=== PATIENT | male | born 1930 | race Two or more races ===

== ENCOUNTER 2017-08-06 07:14 | Outpatient (CLI) | payer OTHER | END 2017-08-06 07:23 | disposition home or self-care (01) | LOC: RAD 07:14 | DX: S22.39XG Fracture of one rib, unspecified side, subsequent encounter for fracture with delayed healing (principal) ==

== ENCOUNTER 2018-01-24 07:30 | Outpatient (CLI) | payer OTHER | END 2018-01-24 07:32 | disposition home or self-care (01) | LOC: RAD 07:30 | DX: J44.9 Chronic obstructive pulmonary disease, unspecified (principal) ==

== ENCOUNTER 2018-03-13 10:00 | Outpatient (CLI) | payer OTHER | END 2018-03-13 10:03 | disposition home or self-care (01) | LOC: RAD 10:00 | DX: I11.9 Hypertensive heart disease without heart failure (principal); J44.9 Chronic obstructive pulmonary disease, unspecified ==

== ENCOUNTER 2019-06-04 08:40 | Outpatient (CLI) | payer OTHER | END 2019-06-04 08:50 | disposition home or self-care (01) | LOC: SONOGRAMA 08:40 | DX: N43.2 Other hydrocele (principal) ==

== ENCOUNTER 2020-03-02 09:41 | Outpatient (CLI) | payer OTHER | END 2020-03-02 09:49 | disposition home or self-care (01) | LOC: RAD 09:41 | PROVIDERS: ATTEND Internal Medicine Cardiovascular Disease | DX: M47.894 Other spondylosis, thoracic region (principal); I11.9 Hypertensive heart disease without heart failure ==

== ENCOUNTER 2020-03-05 09:10 | Outpatient (CLI) | payer OTHER | END 2020-03-05 09:12 | disposition home or self-care (01) | LOC: NUCLEAR 09:10 | PROVIDERS: ATTEND Internal Medicine Cardiovascular Disease | DX: I50.20 Unspecified systolic (congestive) heart failure (principal); R06.09 Other forms of dyspnea; I34.0 Nonrheumatic mitral (valve) insufficiency ==

== ENCOUNTER 2020-03-14 17:07 | Emergency (ER) | payer OTHER ==
[~2020-03-14] VITALS: Ht 172.7 cm; Wt 84.4 kg
[2020-03-14] MEDS ORDERED: SIMVASTATIN5 MG (17:13)
[2020-03-14] MEDS ORDERED: LOSARTAN-HCTZ1 EAC2 (17:13)
[2020-03-14] MEDS ORDERED: GRALISE600 MG (17:14)
== END 2020-03-14 21:24 | disposition home or self-care (01) ==
LOC: ER 17:07
DX: M54.5 Low back pain (principal); R10.12 Left upper quadrant pain; Z03.818 Encounter for observation for suspected exposure to other biological agents ruled out

== ENCOUNTER 2020-03-24 07:30 | Outpatient (CLI) | payer OTHER ==
[~2020-03-24 07:30] MED LIST: GRALISE600 MG; LOSARTAN-HCTZ1 EAC2; SIMVASTATIN5 MG
== END 2020-03-24 07:38 | disposition home or self-care (01) ==
LOC: TOM 07:30
PROVIDERS: ATTEND Internal Medicine Gastroenterology
DX: Q61.02 Congenital multiple renal cysts (principal); K44.9 Diaphragmatic hernia without obstruction or gangrene; K57.90 Diverticulosis of intestine, part unspecified, without perforation or abscess without bleeding; K57.30 Diverticulosis of large intestine without perforation or abscess without bleeding; K59.09 Other constipation; R10.30 Lower abdominal pain, unspecified

== ENCOUNTER 2020-04-08 04:28 | Emergency (ER) | payer OTHER ==
[~2020-04-08] VITALS: Ht 170.2 cm; Wt 84.4 kg
== END 2020-04-08 20:23 | disposition home or self-care (01) ==
LOC: ER 04:28
DX: I86.1 Scrotal varices (principal); K59.09 Other constipation; M54.5 Low back pain

== ENCOUNTER 2020-04-20 08:19 | Emergency (ER) | payer OTHER ==
[~2020-04-20] VITALS: Ht 177.8 cm; Wt 84.4 kg
== END 2020-04-20 17:42 | disposition home or self-care (01) ==
LOC: ER 08:19
DX: N50.812 Left testicular pain (principal); N50.811 Right testicular pain; Z20.828 Contact with and (suspected) exposure to other viral communicable diseases

== ENCOUNTER 2020-06-06 00:18 | Emergency (ER) | payer OTHER ==
[~2020-06-06] VITALS: Ht 170.2 cm; Wt 84.4 kg
[2020-06-06] MEDS ORDERED: SIMVASTATIN5 MG PO (14:18)
[2020-06-06] MEDS ORDERED: LOSARTAN POTASS50 MG PO (14:18)
== END 2020-06-06 06:58 | disposition home or self-care (01) ==
LOC: ER 00:18
DX: R14.0 Abdominal distension (gaseous) (principal); R10.814 Left lower quadrant abdominal tenderness; Z03.818 Encounter for observation for suspected exposure to other biological agents ruled out

== ENCOUNTER 2020-06-06 13:27 | Emergency (ER) | payer OTHER ==
[~2020-06-06] VITALS: Ht 175.3 cm; Wt 83.0 kg
[2020-06-06] MEDS ORDERED: LOSARTAN POTASS50 MG PO (14:18)
[2020-06-06] MEDS ORDERED: SIMVASTATIN5 MG PO (14:18)
== END 2020-06-06 17:22 | disposition home or self-care (01) ==
LOC: ER 13:27
DX: K29.60 Other gastritis without bleeding (principal)

== ENCOUNTER 2020-06-21 08:53 | Emergency (ER) | payer OTHER ==
[~2020-06-21] VITALS: Ht 170.2 cm; Wt 84.4 kg
[~2020-06-21 08:53] MED LIST changes: +LOSARTAN POTASS50 MG PO; +SIMVASTATIN5 MG PO
[2020-06-21] MEDS ORDERED: COZAAR100 MG (09:01)
== END 2020-06-21 21:28 | disposition home or self-care (01) ==
LOC: ER 08:53
DX: R10.84 Generalized abdominal pain (principal); Z03.818 Encounter for observation for suspected exposure to other biological agents ruled out

== ENCOUNTER 2020-07-17 20:23 | Inpatient (IN) | payer OTHER ==
[~2020-07-17] VITALS: Ht 165.1 cm; Wt 77.1 kg
[~2020-07-17 20:23] MED LIST changes: +COZAAR100 MG; -SIMVASTATIN5 MG PO
[2020-07-19] MEDS ORDERED: FAMOTIDINE20 MG (16:23)
[2020-07-19] MEDS ORDERED: AMLODIPINE BESYL5 MG (16:23)
[2020-07-19] MEDS ORDERED: FUROSEMIDE40 MG (16:23)
[2020-07-19] MEDS ORDERED: ALLOPURINOL300 MG (16:23)
[2020-07-19] MEDS ORDERED: TAMSULOSIN HCL0.4 MG (16:24)
[2020-07-19] MEDS ORDERED: NEO-POLY-DEXAMET5 ML (16:24)
[2020-07-19] MEDS ORDERED: METOPROLOL SUCC50 MG (16:24)
[2020-07-19] MEDS ORDERED: SIMVASTATIN40 MG (16:24)
[2020-07-19] MEDS ORDERED: GABAPENTIN100 M2 (16:24)
[2020-07-19] MEDS ORDERED: DUTASTERIDE0.5 MG (16:24)
== END 2020-07-22 17:22 | disposition home or self-care (01) | DRG 728 ==
LOC: ER 20:23 → MEDI 07-18 15:50 → MEDJ 07-18 15:50 → MEDI 07-18 17:12 → MEDJ 07-18 19:21
PROVIDERS: ADMIT Internal Medicine; ATTEND Internal Medicine
PROC: BV44ZZZ Ultrasonography of Scrotum (ICD-10-PCS; principal; 2020-07-17)
DX: N45.3 Epididymo-orchitis (principal); N43.3 Hydrocele, unspecified; C61 Malignant neoplasm of prostate; Z20.822 Contact with and (suspected) exposure to COVID-19

== ENCOUNTER 2020-08-18 11:14 | Emergency (ER) | payer OTHER ==
[~2020-08-18] VITALS: Ht 167.6 cm; Wt 79.8 kg
[~2020-08-18 11:14] MED LIST changes: +ALLOPURINOL300 MG; +AMLODIPINE BESYL5 MG; +DUTASTERIDE0.5 MG; +FAMOTIDINE20 MG; +FUROSEMIDE40 MG; +GABAPENTIN100 M2; +METOPROLOL SUCC50 MG; +NEO-POLY-DEXAMET5 ML; +SIMVASTATIN40 MG; +TAMSULOSIN HCL0.4 MG
[2020-08-18] MEDS ORDERED: SURFAK240 MG PO (15:43)
== END 2020-08-18 16:40 | disposition home or self-care (01) ==
LOC: ER 11:14
DX: K59.09 Other constipation (principal); K62.89 Other specified diseases of anus and rectum

== ENCOUNTER 2020-09-06 23:45 | Emergency (ER) | payer OTHER ==
[~2020-09-06] VITALS: Ht 170.2 cm; Wt 72.6 kg
[~2020-09-06 23:45] MED LIST changes: +SURFAK240 MG PO
[2020-10-19] MEDS ORDERED: NORVASC2.5 M1 PO (11:01)
[2020-10-19] MEDS ORDERED: TOPROL XL25 M1 PO (11:01)
== END 2020-09-07 21:46 | disposition home or self-care (01) ==
LOC: ER 23:45
DX: K59.09 Other constipation (principal); R10.32 Left lower quadrant pain; R53.1 Weakness

== ENCOUNTER 2020-09-09 06:26 | Emergency (ER) | payer OTHER ==
[~2020-09-09] VITALS: Ht 170.2 cm; Wt 84.4 kg
[2020-09-09] MEDS ORDERED: LACTULOSE10 GM/151 PO (09:27)
[2020-10-19] MEDS ORDERED: TOPROL XL25 M1 PO (11:01)
[2020-10-19] MEDS ORDERED: NORVASC2.5 M1 PO (11:01)
== END 2020-09-09 10:47 | disposition home or self-care (01) ==
LOC: ER 06:26
DX: K59.09 Other constipation (principal)

== ENCOUNTER 2020-09-18 16:45 | Emergency (ER) | payer OTHER ==
[~2020-09-18] VITALS: Ht 170.2 cm; Wt 81.6 kg
[~2020-09-18 16:45] MED LIST changes: +LACTULOSE10 GM/151 PO
[2020-10-19] MEDS ORDERED: TOPROL XL25 M1 PO (11:01)
[2020-10-19] MEDS ORDERED: NORVASC2.5 M1 PO (11:01)
== END 2020-09-19 12:00 | disposition home or self-care (01) ==
LOC: ER 16:45
DX: K59.09 Other constipation (principal); N50.89 Other specified disorders of the male genital organs; E87.1 Hypo-osmolality and hyponatremia

== ENCOUNTER 2020-11-01 08:11 | Day surgery (SDC) | payer OTHER ==
[~2020-11-01 08:11] MED LIST changes: +NORVASC2.5 M1 PO; +TOPROL XL25 M1 PO
== END 2020-11-01 20:25 | disposition home or self-care (01) ==
LOC: CIR.AMB 08:11
PROVIDERS: ATTEND Urology
DX: N43.2 Other hydrocele (principal); Z20.822 Contact with and (suspected) exposure to COVID-19

== ENCOUNTER 2020-12-20 11:35 | Emergency (ER) | payer OTHER ==
[~2020-12-20] VITALS: Ht 170.2 cm; Wt 79.8 kg
== END 2020-12-20 20:17 | disposition home or self-care (01) ==
LOC: ER 11:35
DX: R10.13 Epigastric pain (principal); Z20.822 Contact with and (suspected) exposure to COVID-19

== ENCOUNTER 2021-01-07 12:48 | Emergency (ER) | payer OTHER ==
[~2021-01-07] VITALS: Ht 172.7 cm; Wt 80.7 kg
== END 2021-01-07 19:18 | disposition home or self-care (01) ==
LOC: ER 12:48
DX: R14.0 Abdominal distension (gaseous) (principal); R00.2 Palpitations

== ENCOUNTER 2021-02-15 08:26 | Outpatient (CLI) | payer OTHER | END 2021-02-15 08:32 | disposition home or self-care (01) | LOC: SONOGRAMA 08:26 → MAMO-SONO 02-22 07:15 | PROVIDERS: ATTEND Internal Medicine Cardiovascular Disease | DX: E04.1 Nontoxic single thyroid nodule (principal); E11.9 Type 2 diabetes mellitus without complications; I11.9 Hypertensive heart disease without heart failure; I70.0 Atherosclerosis of aorta ==

== ENCOUNTER 2021-02-28 08:00 | Outpatient (CLI) | payer OTHER | END 2021-02-28 08:30 | disposition home or self-care (01) | LOC: PPH VACUNA 08:00 | PROVIDERS: ATTEND Emergency Medicine Pediatric Emergency Medicine | DX: Z23 Encounter for immunization (principal) ==

== ENCOUNTER 2021-08-11 08:00 | Outpatient (CLI) | payer OTHER | END 2021-08-11 08:30 | disposition home or self-care (01) | LOC: PPH VACUNA 08:00 | PROVIDERS: ATTEND Emergency Medicine Pediatric Emergency Medicine | DX: Z23 Encounter for immunization (principal) ==

== ENCOUNTER 2021-09-26 14:01 | Emergency (ER) | payer OTHER ==
[~2021-09-26] VITALS: Ht 172.7 cm; Wt 84.8 kg
[2021-09-26] MEDS ORDERED: TELMISARTAN80 MG PO (14:19)
[2021-09-26] MEDS ORDERED: METOPROLOL SUCC50 MG PO (14:19)
[2021-09-26] MEDS ORDERED: ABANEU-SL TABL1 EACH SL (14:19)
[2021-09-26] MEDS ORDERED: AMLODIPINE BESYL5 MG PO (14:20)
== END 2021-09-26 19:24 | disposition home or self-care (01) ==
LOC: ER 14:01
DX: K52.9 Noninfective gastroenteritis and colitis, unspecified (principal); I10 Essential (primary) hypertension; Z88.6 Allergy status to analgesic agent; Z88.0 Allergy status to penicillin